=== PATIENT | female | born 1985 | race Asian ===

== ENCOUNTER 2017-02-23 06:08 | Inpatient (IN) | payer OTHER ==
[2017-02-22 16:15] LABS: BASOPHILS % (AUTO) 0.2 % (0.0-2.0); EOSINOPHILS # (AUTO) 0.2 K/uL (0.0-0.4); EOSINOPHILS % (AUTO) 2.1 % (0.0-4.0); HEMATOCRIT 34.9 % (36-48); LYMPHOCYTES # (AUTO) 1.3 K/uL (1.0-5.5); LYMPHOCYTES % (AUTO) 10.9 % (20.5-51.5); MEAN CORPUSCULAR HEMOGLOBIN 24 pg (27-31); MEAN CORPUSCULAR HGB CONC 32 % (32-36); MEAN CORPUSCULAR VOLUME 76 fL (79.0-98.0); MONOCYTES # (AUTO) 0.4 K/uL (0.0-1.0); MONOCYTES % (AUTO) 3.7 % (1.7-9.3); NEUTROPHILS # (AUTO) 9.6 K/uL (1.8-7.7); NEUTROPHILS % (AUTO) 83.1 % (40.0-70.0); RED CELL DISTRIBUTION WIDTH 20.2 % (9.0-15.0); WHITE BLOOD COUNT (AUTO) 11.5 K/uL (4.8-10.8)
[2017-02-22 16:51] LABS: PLATELET COUNT (AUTO) 265 K/uL (130-430)
[~2017-02-23] VITALS: Ht 160 cm; Wt 77.1 kg
[2017-02-23] MEDS ORDERED: LR 1,000 ML IV SCH ×3 (06:36→09:30)
[2017-02-23 06:41] VITALS: BP_SYST 107
[2017-02-23] MEDS ORDERED: CEFAZOLIN 2 GM IVPB PREMIX 50 ML IV ONE ×2 (06:45→09:01)
[2017-02-23] MEDS ORDERED: OXYTOCIN/NORMAL SALINE 1,000 ML IV ONE (08:25)
[2017-02-23] MEDS ORDERED: LANOLIN 7 GM OINT. TP PRN (08:30)
[2017-02-23] MEDS ORDERED: BISACODYL 10 MG/SUPPOSITORY RC PRN (08:30)
[2017-02-23] MEDS ORDERED: MEASLES,MUMPS&RUBELLA VACC/PF 12500 UNIT/0.5 ML VIAL SUBQ PRN (08:30)
[2017-02-23] MEDS ORDERED: ACETAMINOPHEN 325 MG TABLET PO PRN (08:30)
[2017-02-23] MEDS ORDERED: RHO(D) IMMUNE GLOBULIN/MALTOSE 1500 UNITS/1.3 ML (WINHRO) IM PRN (08:30)
[2017-02-23] MEDS ORDERED: TEMAZEPAM 15 MG CAPSULE PO PRN (08:30)
[2017-02-23] MEDS ORDERED: ANUSOL 1 EA SUPP.RECT (PREPARATION H) RC PRN (08:30)
[2017-02-23] MEDS ORDERED: HYDROcodone/ACETAMIN 5-325 MG TAB (NORCO/ VICODIN) PO PRN (08:30)
[2017-02-23] MEDS ORDERED: NS IRRIG SOLN 1000 ML IR ONE (09:01)
[2017-02-23] MEDS ORDERED: BUPIVACAINE /PF 0.75% 10 ML VIAL INJ ONE (09:01)
[2017-02-23] MEDS ORDERED: OXYTOCIN 10 UNIT/ML VIAL IV ONE (09:01)
[2017-02-23] MEDS ORDERED: MORPHINE SULFATE 10MG/10ML PF AMP EP ONE (09:01)
[2017-02-23] MEDS ORDERED: LR 1,000 ML IV.SOLN IV ONE (09:01)
[2017-02-23] MEDS ORDERED: MEPERIDINE HCL/PF 25 MG/ML DISP.SYRIN IVP PRN ×2 (09:30)
[2017-02-23] MEDS ORDERED: HYDROmorphone 2 MG/ML VIAL IVP PRN ×2 (09:30)
[2017-02-23] MEDS ORDERED: HYDROmorphone 1 MG INJ. 1 MG/ML AMPUL IVP PRN (09:30)
[2017-02-23] MEDS ORDERED: ONDANSETRON HCL 4 MG/2 ML VIAL IVP PRN ×2 (09:30→09:45)
[2017-02-23] MEDS ORDERED: ePHEDrine sulfate 50 MG/ML VIAL IVP PRN (09:30)
[2017-02-23] MEDS ORDERED: MORPHINE SULFATE 10MG/10ML PF AMP SP SCH (09:45)
[2017-02-23] MEDS ORDERED: DIPHENHYDRAMINE INJ 50 MG/ML VIAL IVP PRN (09:45)
[2017-02-23] MEDS ORDERED: NALBUPHINE HCL 10 MG/ML AMP IVP PRN (09:45)
[2017-02-23] MEDS ORDERED: NALOXONE HCL 0.4 MG/ML AMP (NARCAN) IVP PRN (09:45)
[2017-02-23 10:00] VITALS: BP_SYST 100
[2017-02-23] MEDS ORDERED: DIPH-TET-PERTUS Vaccine 0.5 ML VIAL/Tdap (ADACEL) I.M. PRN (10:30)
[2017-02-24] MEDS ORDERED: KETOROLAC TROMETHAMINE 30 MG VIAL ONE (04:39)
[2017-02-24] MEDS ORDERED: KETOROLAC TROMETHAMINE 30 MG VIAL IVP ONE (05:30)
[2017-02-24 08:27] LABS: BASOPHILS % (AUTO) 0.1 % (0.0-2.0); EOSINOPHILS # (AUTO) 0.2 K/uL (0.0-0.4); EOSINOPHILS % (AUTO) 1.2 % (0.0-4.0); HEMATOCRIT 31.5 % (36-48); LYMPHOCYTES # (AUTO) 1.4 K/uL (1.0-5.5); LYMPHOCYTES % (AUTO) 9.7 % (20.5-51.5); MEAN CORPUSCULAR HEMOGLOBIN 24 pg (27-31); MEAN CORPUSCULAR HGB CONC 32 % (32-36); MEAN CORPUSCULAR VOLUME 76 fL (79.0-98.0); MONOCYTES # (AUTO) 0.4 K/uL (0.0-1.0); MONOCYTES % (AUTO) 2.9 % (1.7-9.3); NEUTROPHILS # (AUTO) 12.1 K/uL (1.8-7.7); NEUTROPHILS % (AUTO) 86.1 % (40.0-70.0); PLATELET COUNT (AUTO) 218 K/uL (130-430); RED BLOOD CELL COUNT(AUTO) 4.14 MIL/uL (4.2-6.2); RED CELL DISTRIBUTION WIDTH 19.4 % (9.0-15.0); WHITE BLOOD COUNT (AUTO) 14.1 K/uL (4.8-10.8)
[2017-02-24] MEDS: SIMETHICONE 80 MG TAB.CHEW PO PRN (11:51)
[2017-02-24] MEDS: DOCUSATE SODIUM 100 MG CAPSULE PO PRN (11:51)
[2017-02-24] MEDS: SENNOSIDES/DOCUSATE SODIUM 1 TAB TABLET(SENOKOT-S) PO PRN (11:51)
[2017-02-24] MEDS: IBUPROFEN 600 MG TABLET PO SCH ×5 (11:52→23:59)
[2017-02-24] MEDS: HYDROcodone/ACETAMIN 5-325 MG TAB (NORCO/ VICODIN) PO PRN (20:26)
[2017-02-25] MEDS: IBUPROFEN 600 MG TABLET PO SCH (06:03)
[2017-02-25] MEDS: HYDROcodone/ACETAMIN 5-325 MG TAB (NORCO/ VICODIN) PO PRN ×2 (13:15→20:18)
[2017-02-26] MEDS: IBUPROFEN 600 MG TABLET PO SCH ×4 (00:06→17:58)
[2017-02-26] MEDS: SIMETHICONE 80 MG TAB.CHEW PO PRN (12:08)
[2017-02-26] MEDS: DOCUSATE SODIUM 100 MG CAPSULE PO PRN (12:08)
[2017-02-26] MEDS: SENNOSIDES/DOCUSATE SODIUM 1 TAB TABLET(SENOKOT-S) PO PRN (12:08)
[2017-02-26] MEDS ORDERED: DIPH-TET-PERTUS Vaccine 0.5 ML VIAL/Tdap (ADACEL) I.M. PRN (16:45)
== END 2017-02-26 20:05 | disposition home or self-care (01) | DRG 765 ==
LOC: SPU 06:08
PROVIDERS: ADMIT Obstetrics & Gynecology; ATTEND Obstetrics & Gynecology
PROC: 3E0234Z Introduction of Serum, Toxoid and Vaccine into Muscle, Percutaneous Approach (ICD-10-PCS; 2017-02-23)
PROC: 10D00Z1 Extraction of Products of Conception, Low, Open Approach (ICD-10-PCS; principal; 2017-02-23 08:30)
DX: O36.63X0 Maternal care for excessive fetal growth, third trimester, not applicable or unspecified (principal); K83.1 Obstruction of bile duct; O26.62 Liver and biliary tract disorders in childbirth; Z37.0 Single live birth; Z3A.37 37 weeks gestation of pregnancy; Z23 Encounter for immunization
CPT/HCPCS: 36415; 85025; 86592; 86886; 86900; 86901; 90715; 94760; J0690; J1885; J2274; J2405; J2590; J3490; J7120